=== PATIENT | male | born 1955 | race Caucasian/White ===

== ENCOUNTER 2021-02-20 09:14 | Outpatient (CLI) | payer MEDICARE, OTHER | END 2021-02-20 09:15 | disposition home or self-care (01) | LOC: CSHWCC 09:14 | PROVIDERS: ATTEND Nurse Practitioner Family | DX: T81.32XD Disruption of internal operation (surgical) wound, not elsewhere classified, subsequent encounter (principal); E27.40 Unspecified adrenocortical insufficiency; E78.2 Mixed hyperlipidemia; I10 Essential (primary) hypertension; I25.10 Atherosclerotic heart disease of native coronary artery without angina pectoris; I48.0 Paroxysmal atrial fibrillation; L66.1 Lichen planopilaris; W22.8XXD Striking against or struck by other objects, subsequent encounter; Z98.890 Other specified postprocedural states | CPT/HCPCS: 11042; 97139; G0463; 99213 ==

== ENCOUNTER → 2021-03-11 | Outpatient (CLI) | payer MEDICARE, OTHER | LOC: CSHWCC 12:22 | PROVIDERS: ATTEND Nurse Practitioner Family | DX: T81.89XD Other complications of procedures, not elsewhere classified, subsequent encounter (principal); T81.32XD Disruption of internal operation (surgical) wound, not elsewhere classified, subsequent encounter; S51.802A Unspecified open wound of left forearm, initial encounter; E27.40 Unspecified adrenocortical insufficiency; E78.2 Mixed hyperlipidemia; I25.10 Atherosclerotic heart disease of native coronary artery without angina pectoris; I48.0 Paroxysmal atrial fibrillation; L66.1 Lichen planopilaris; W01.198D Fall on same level from slipping, tripping and stumbling with subsequent striking against other object, subsequent encounter; W22.8XXD Striking against or struck by other objects, subsequent encounter; Z98.890 Other specified postprocedural states | CPT/HCPCS: 11042; 97139; G0463 ×2; 99213 ==